=== PATIENT | female | born 2000 | race American Indian/Alaskan Native ===

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

== ENCOUNTER 2023-12-25 20:36 | Inpatient (IN) | payer MEDICAID ==
[2023-12-25] MEDS ORDERED: Acetaminophen 325 MG Tab PO PRN (21:30)
[2023-12-25] MEDS ORDERED: Misoprostol 400 MCG (4 X 100 MCG TAB) RECTAL PRN (21:30)
[2023-12-25] MEDS ORDERED: Oxytocin/Normal Saline 30 UNIT/500 ML BAG IV SCH ×2 (21:30→23:30)
[2023-12-25] MEDS ORDERED: Misoprostol 50 MCG (1/2 of 100 MCG) Tab PO SCH (21:30)
[2023-12-25] MEDS ORDERED: Sodium Chloride 0.9% 10 ML Syringe FLUSH PRN (21:30)
[2023-12-25] MEDS ORDERED: Tranexamic Acid 1,000 MG in Sodium Chloride 0.9% 100 ML IV PRN (21:30)
[2023-12-25] MEDS ORDERED: Carboprost Tromethamine 250 MCG/1 ML Amp IM PRN (21:30)
[2023-12-25] MEDS ORDERED: Ondansetron 4 MG/2 ML SDV IVPUSH PRN (21:30)
[2023-12-25] MEDS ORDERED: Methylergonovine 0.2 MG/1 ML Amp IM PRN (21:30)
[2023-12-25 21:48] LABS: HEMATOCRIT 28.2 % (37.0-47.0); HEMOGLOBIN 8.3 g/dL (12.0-16.0); MEAN CORPUSCULAR HEMOGLOBIN 20.5 pg (27.0-34.0); MEAN CORPUSCULAR HGB CONC 29.4 g/dL (33.0-35.0); MEAN CORPUSCULAR VOLUME 69.6 fL (80-100); RED BLOOD CELL COUNT 4.05 10^6/uL (4.2-5.4); WHITE BLOOD CELL COUNT,WBC 9.9 10^3/uL (5.0-10.0)
[2023-12-25] MEDS: fentaNYL 100 MCG/2 ML SDV IVPUSH PRN (22:04)
[2023-12-25] MEDS: Lactated Ringers 1,000 ML IV ONE (22:04)
[2023-12-25 22:09] LABS: APPEARANCE,URINE CLEAR (CLEAR); BILIRUBIN,URINE NEGATIVE (NEGATIVE); COLOR,URINE YELLOW (YELLOW); GLUCOSE,URINE NEGATIVE (NEGATIVE); KETONES,URINE NEGATIVE (NEGATIVE); LEUKOCYTE ESTERASE,URINE NEGATIVE (NEGATIVE); NITRITE,URINE NEGATIVE (NEGATIVE); OCCULT BLOOD,URINE NEGATIVE (NEGATIVE); PROTEIN,URINE NEGATIVE (NEGATIVE); UROBILINOGEN,URINE 0.2 mg/dL (0.2-1.0)
[2023-12-25 22:15] LABS: A/G RATIO 0.68; ALANINE AMINOTRANSFERASE,ALT 8 U/L (14-59); ALBUMIN 2.7 g/dL (3.4-5.0); ALKALINE PHOSPHATASE 432 U/L (46-116); ASPARTATE AMNIOTRANSFERASE,AST 11 U/L (15-37); BILIRUBIN TOTAL 0.6 mg/dL (0.2-1.0); BLOOD UREA NITROGEN,BUN 7 mg/dL (7-18); CALCIUM 8.2 mg/dL (8.5-10.1); CARBON DIOXIDE,CO2 23 mmol/L (21-32); CHLORIDE,CL 104 mmol/L (98-107); CREATININE 0.54 mg/dL (0.55-1.02); ESTIMATED GFR 134 mL/min (>=60); GLUCOSE RANDOM 99 mg/dL (70-99); PROTEIN TOTAL,TP 6.7 g/dL (6.4-8.2); SODIUM,NA 138 mmol/L (136-145)
[2023-12-25] MEDS ORDERED: Bupivacaine 0.25% 10 ML SDV ONE (23:21)
[2023-12-25] MEDS ORDERED: fentaNYL 100 MCG/2 ML SDV ONE (23:21)
[2023-12-25] MEDS: Lactated Ringers 1,000 ML IV SCH (23:30)
[2023-12-25] MEDS ORDERED: ePHEDrine 50 MG/ML SDV IVPUSH PRN (23:42)
[2023-12-25] MEDS ORDERED: Phenylephrine HCl In 0.9% NaCl 1 MG/10 ML Syringe IVPUSH PRN (23:42)
[2023-12-25] MEDS ORDERED: Ropivacaine 200 MG in Premix Bag 1 BAG EPIDUR SCH (23:45)
[2023-12-26] MEDS: Witch Hazel Medicated Pads 100/Jar TOP PRN (07:59)
[2023-12-26] MEDS: Benzocaine/Menthol 20%-0.5% Spray 78 GM Cannister ONE (10:26)
[2023-12-26] MEDS: Misoprostol 50 MCG (1/2 of 100 MCG) Tab PO ONE (10:29)
[2023-12-26] MEDS: Lidocaine 1% 30 ML SDV INJECT ONE (10:29)
[2023-12-26 12:32] LABS: HEMATOCRIT 26.3 % (37.0-47.0); HEMOGLOBIN 7.8 g/dL (12.0-16.0)
[2023-12-26] MEDS: Docusate Sodium 100 MG Cap ONE (13:12)
[2023-12-26] MEDS: Prenatal Multivitamin with Calcium/Folic Acid/Iron Tab PO SCH (13:12)
[2023-12-26] MEDS: Ibuprofen 800 MG Tab PO PRN (13:12)
[2023-12-26] MEDS: Ferrous Sulfate 325 MG Tab PO SCH (13:13)
[2023-12-26] MEDS: Benzocaine/Menthol 20%-0.5% Spray 78 GM Cannister TOP PRN (13:13)
[2023-12-26] MEDS: Ferrous Sulfate 325 MG Tab ONE (13:15)
[2023-12-26] MEDS: Prenatal Multivitamin with Calcium/Folic Acid/Iron Tab ONE (13:15)
[2023-12-26] MEDS: Witch Hazel Medicated Pads 100/Jar TOP ONE (13:15)
[2023-12-26] MEDS: Docusate Sodium 100 MG Cap PO SCH (23:28)
[2023-12-27 06:50] LABS: HEMATOCRIT 24.9 % (37.0-47.0); HEMOGLOBIN 7.2 g/dL (12.0-16.0); MEAN CORPUSCULAR HEMOGLOBIN 20.5 pg (27.0-34.0); MEAN CORPUSCULAR HGB CONC 28.9 g/dL (33.0-35.0); MEAN CORPUSCULAR VOLUME 70.9 fL (80-100); RED BLOOD CELL COUNT 3.51 10^6/uL (4.2-5.4); WHITE BLOOD CELL COUNT,WBC 11.1 10^3/uL (5.0-10.0)
[2023-12-27 13:32] VITALS: BP 127/60; PULSE 70
[2023-12-28 12:46] LABS: HEP B SURFACE AG Negative (Negative)
== END 2023-12-27 13:29 | disposition home or self-care (01) | DRG 807 ==
LOC: DL.OBCHECK 20:36 → DL.OB 21:39 → OBSVTOIN 12-26 03:32
PROVIDERS: ADMIT Student in an Organized Health Care Education/Training Program; ATTEND Student in an Organized Health Care Education/Training Program
PROC: 10E0XZZ Delivery of Products of Conception, External Approach (ICD-10-PCS; principal; 2023-12-26)
PROC: 0HQ9XZZ Repair Perineum Skin, External Approach (ICD-10-PCS; 2023-12-26)
PROC: 10907ZC Drainage of Amniotic Fluid, Therapeutic from Products of Conception, Via Natural or Artificial Opening (ICD-10-PCS; 2023-12-26)
PROC: 3E0R3BZ Introduction of Anesthetic Agent into Spinal Canal, Percutaneous Approach (ICD-10-PCS; 2023-12-26)
PROC: 00HU33Z Insertion of Infusion Device into Spinal Canal, Percutaneous Approach (ICD-10-PCS; 2023-12-26)
DX: O99.02 Anemia complicating childbirth (principal); Z37.0 Single live birth; Z3A.39 39 weeks gestation of pregnancy; O70.0 First degree perineal laceration during delivery; O69.81X0 Labor and delivery complicated by cord around neck, without compression, not applicable or unspecified
CPT/HCPCS: 36415; 51701; 59025; 80053; 81003; 85014; 85018; 85027; 85049; 86592; A9270-GY; C1729; J3010; J7120